=== PATIENT | male | born 1985 | race Hispanic/Latino ===

== ENCOUNTER 2021-10-10 08:51 | Emergency (ER) | payer SELFPAY | END 2021-10-10 10:05 | disposition home or self-care (01) | LOC: CSHERS 08:51 | DX: R42 Dizziness and giddiness (principal); R11.0 Nausea | CPT/HCPCS: 99283 ==

== ENCOUNTER 2023-08-05 16:25 | Emergency (ER) | payer SELFPAY | END 2023-08-05 18:20 | disposition home or self-care (01) | LOC: CSHERS 16:25 | DX: M25.572 Pain in left ankle and joints of left foot (principal) | CPT/HCPCS: 36415; 85379; 99283 ==